=== PATIENT | female | born 1955 | race African-American/Black ===

== ENCOUNTER 2021-04-03 19:37 | Inpatient (IN) | payer MEDICARE ==
[~2021-04-03] VITALS: Ht 160 cm; Wt 66.2 kg
[2021-04-03 20:44] VITALS: BP 142/88
[2021-04-03] MEDS ORDERED: MAG HYDROX/AL HYDROX/SIMETH 30 ML UDC PO PRN (21:00)
[2021-04-03] MEDS ORDERED: BLOOD SUGAR DIAGNOSTIC 1 EACH STRIP IN ONE (21:00)
[2021-04-03] MEDS ORDERED: MAGNESIUM HYDROXIDE 30 ML UDC PO PRN (21:00)
--- NOTE | 2021-04-04 00:44 | NUR ---
GPS/RN ADMITTED A 65 Y/O FEMALE FROM [facility] IN [facility]. PATIENT ADMITTED ON 5150 HOLD FOR DTS AND GD. PER HOLD, "PATIENT HAS SCHIZOAFFECTIVE DISORDER-UNSPECIFIED TYPE, STATUS POST SUICIDE ATTEMPT VIA DRINKING BLEACH DUE TO DELUSIONAL BELIEF THAT DAUGHTER WAS MURDERED BY THE . PATIENT HAS LONG HISTOR OF TREATMENT NON COMPLIANCE. FAMILY REPORTS THAT PATIENT SUFFER FROM SEVERE PARANOID IDEATIONS, PATIENT HASN'T BEED GETTING FOOD DUE TO BELIEF THAT SHE WILL BE ATTACKED BY THUGS AT THE [employer]. PATIENT HAS LOST 30 LBS. IN LAST 2 MONTHS." UPON FACE TO FACE ASSESSMENT, PATIENT WAS AWAKE, ALERT, ORIENTED X 1, FLAT AFFECT, DELUSIONAL, PATIENT STATED THAT AFTER SHE TOOK THE BLEACH, HER INTESTINES CAME OUT AND A RESULT, SHE DOES NOT WANT TO EAT. PER CT OF THE ABDOMEN AND PELVIS DONE IN [facility], RESULT WAS UNREMARKABLE. PATIENT IS UNDER THE PSYCH CARE OF DR. CODY AND THE MEDICAL CARE OF DR. SUNNI SHELL. PATIENT'S RIGHTS HANDBOOK AND GUIDE TO PRESCRIPTION MEDICATIONS HANDBOOK WERE PROVIDED. PATIENT HAS NO BELONGINGS UPON ADMISSION. PATIENT DENIES PAIN OR DISCOMFORT AT THIS TIME, SKIN BODY CHECK ASSESSMENT DONE. SKIN IS INTACT. NO VERBALIZATION OF THOUGHTS AND FEELINGS. SAFETY PRECAUTIONS IN PLACE. WILL CONTINUE TO MONITOR Q 15 MINUTES ROUNDS FOR SAFETY AND BEHAVIOR.
[2021-04-04] MEDS ORDERED: CETI10CA PO (00:58)
[2021-04-04] MEDS ORDERED: SIMV10TA98 PO (00:58)
[2021-04-04] MEDS ORDERED: ACET-907 PO (00:58)
[2021-04-04] MEDS ORDERED: TRAZ-182 PO (00:58)
[2021-04-04] MEDS ORDERED: OXYB5TAB16 PO (00:58)
[2021-04-04 07:45] LABS: ALBUMIN 3.1 g/dL (3.4-5.0); BILIRUBIN,TOTAL 0.7 mg/dL (0.2-1.0); CALCIUM, SERUM 9.2 mg/dL (8.5-10.1); POTASSIUM 3.5 mmol/L (3.5-5.1); TOTAL PROTEIN, SERUM 5.9 g/dL (6.4-8.2)
[2021-04-04 08:00] VITALS: BP 114/64
--- NOTE | 2021-04-04 11:30 | NUR ---
RN NOTES PATIENT SEEN AND EVALUATED BY MARIE CAMPOS CARD BOXER, MADE AWARE THAT HOME MEDICATION NEEDS DONE , VEDA SALAZAR SAID SHE WILL DO IT.
[2021-04-04 12:00] LABS: BILIRUBIN,URINE SMALL (NEGATIVE); COLOR,URINE YELLOW (YELLOW); LEUKOCYTE ESTERASE ,URINE NEGATIVE (NEGATIVE); NITRITE, URINE NEGATIVE (NEGATIVE); PROTEIN,URINE NEGATIVE (NEGATIVE); UGLUCOSE NEGATIVE (NEGATIVE); UROBILINOGEN,URINE 0.2 EU/dL (0.2)
--- NOTE | 2021-04-04 12:00 | NUR ---
Family Contact: SW contacted the pts daughter, Krystina ([phone]), and left a voicemail stating that the SW would like to discuss the pts treatment.
[2021-04-04 12:16] LABS: BACTERIA,URINE Few /HPF (None Seen); MUCUS,URINE Few /LPF (None Seen); RBC,URINE 0-2 /HPF (0-2); SQUAMOUS EPITHELIAL CELL,UR Moderate /HPF (None Seen); WBC,URINE 0-2 /HPF (0-3)
[2021-04-04] MEDS: ACETAMINOPHEN 325 MG TABLET PO PRN (12:16)
--- NOTE | 2021-04-04 12:18 | NUR ---
RN NOTES PATIENT COMPLAINT OF 3/10 GENERALIZED PAIN, ACETAMINOPHEN GIVEN ORDERED. NO ACUTE DISTRESS NOTED.
[2021-04-04 12:19] LABS: CALCIUM OXALATE CRYSTALS,UR Rare /HPF (None Seen); URINE AMORPHOUS URATE Moderate /HPF (None Seen)
--- NOTE | 2021-04-04 12:28 | NUR ---
Pt currently is homeless and states that she needs placement. SW will work with the pt and the MD regarding appropriate discharge planning. SW will form a safe and proper discharge.
[2021-04-04] MEDS: DIVALPROEX SODIUM 125 MG CAP.SPRINK PO SCH ×3 (13:30→17:51)
[2021-04-04] MEDS: risperiDONE 1 MG TABLET PO SCH ×5 (13:30→23:30)
[2021-04-04 16:00] VITALS: BP 129/76
[2021-04-04] MEDS ORDERED: DEXTROSE 50%-WATER 50 ML DISP.SYRIN IV PRN (18:00)
[2021-04-04] MEDS: SIMVASTATIN 10 MG TABLET PO SCH (18:34)
[2021-04-04 20:31] VITALS: BP 120/65
[2021-04-04] MEDS: BLOOD SUGAR DIAGNOSTIC 1 EACH STRIP IN SCH (21:56)
[2021-04-04] MEDS: INSULIN REGULAR, HUMAN 100 UNIT/ML 3 ML VIAL SQ PRN (21:57)
[2021-04-05 08:00] VITALS: BP 122/92
[2021-04-05] MEDS: METFORMIN 500 MG TABLET PO SCH ×3 (09:00→17:27)
[2021-04-05] MEDS: cetrizine 10 MG TABLET PO SCH ×2 (09:00→09:35)
[2021-04-05] MEDS: BLOOD SUGAR DIAGNOSTIC 1 EACH STRIP IN SCH ×4 (09:24→21:38)
[2021-04-05] MEDS: OXYBUTYNIN CHLORIDE 5 MG TABLET PO SCH (09:35)
[2021-04-05] MEDS: risperiDONE 1 MG TABLET PO SCH ×2 (09:36→21:46)
[2021-04-05] MEDS: DIVALPROEX SODIUM 125 MG CAP.SPRINK PO SCH ×4 (09:36→17:27)
--- NOTE | 2021-04-05 11:09 | NUR ---
GIVEN TYLENOL FOR HEADACHE.
--- NOTE | 2021-04-05 11:14 | NUR ---
AGITATED,WALKING ABOUT RANTING.VERY PARANOID.
[2021-04-05] MEDS: LORAZEPAM 0.5 MG TABLET PO PRN (11:23)
--- NOTE | 2021-04-05 12:13 | NUR ---
given ativan for agitation.
[2021-04-05] MEDS: INSULIN REGULAR, HUMAN 100 UNIT/ML 3 ML VIAL SQ PRN ×3 (12:42→21:49)
[2021-04-05 16:00] VITALS: BP 109/69
[2021-04-05] MEDS: SIMVASTATIN 10 MG TABLET PO SCH (17:27)
[2021-04-05 20:03] VITALS: BP 101/55
--- NOTE | 2021-04-06 06:00 | NUR ---
ENDING NOTES: WITH CONVERSATION SHE HAD FLEEING THOUGHTS. SHE WOULD TALK ABOUT HER DAUGHTER, ABOUT WICKED PEOPLE, HER NEIGBORS, SHOOTING IN THE NEWS. SHE WAS INTERUPPETED WITH THE LADY IN [address] THE NIGHT AND UNABLE TO GET MUCH SLEEP. SLEPT 6 HOURS THIS NIGHT
[2021-04-06] MEDS: BLOOD SUGAR DIAGNOSTIC 1 EACH STRIP IN SCH ×4 (07:52→21:48)
[2021-04-06 08:00] VITALS: BP 114/71
[2021-04-06] MEDS: risperiDONE 1 MG TABLET PO SCH ×2 (08:53→21:43)
[2021-04-06] MEDS: METFORMIN 500 MG TABLET PO SCH ×2 (09:00→17:00)
[2021-04-06] MEDS: DIVALPROEX SODIUM 125 MG CAP.SPRINK PO SCH ×3 (09:00→17:00)
[2021-04-06] MEDS: cetrizine 10 MG TABLET PO SCH (09:00)
[2021-04-06] MEDS: OXYBUTYNIN CHLORIDE 5 MG TABLET PO SCH (09:02)
[2021-04-06] MEDS: LORAZEPAM 0.5 MG TABLET PO PRN (10:14)
--- NOTE | 2021-04-06 10:22 | NUR ---
RN NOTES PATIENT REQUEST FOR ATIVAN 0.5MG 1 TAB P.O. AND WAS GIVEN. WILL CONTINUE TO MONITOR.
[2021-04-06 16:00] VITALS: BP 138/89
[2021-04-06] MEDS: SIMVASTATIN 10 MG TABLET PO SCH (18:00)
[2021-04-06 21:19] VITALS: BP 142/89
[2021-04-06 21:33] VITALS: BP 142/89
[2021-04-06] MEDS: INSULIN REGULAR, HUMAN 100 UNIT/ML 3 ML VIAL SQ PRN (21:53)
--- NOTE | 2021-04-07 06:55 | NUR ---
GPS RN CLOSING NOTES: PATIENT IS AWAKE, A/O X1. PATIENT SLEPT 5HR THIS SHIFT. PATIENT REFUSED WEEKLY SKIN ASSESSMENT. NO S/S OF DISTRESS. RESPIRATION EVEN AND UNLABORED WITH EQUAL RISE AND FALL OF THE CHEST ON ROOM AIR. ALL PATIENT CARE NEEDS HAVE BEEN MET ANTICIPATED. WILL CONTINUE TO MONITOR FOR SAFETY, MOOD AND BEHAVIOR AND ENDORSE TO AM SHIFT.
[2021-04-07] MEDS: BLOOD SUGAR DIAGNOSTIC 1 EACH STRIP IN SCH ×4 (07:36→21:24)
[2021-04-07 08:00] VITALS: BP 144/67
[2021-04-07] MEDS: cetrizine 10 MG TABLET PO SCH (08:03)
[2021-04-07] MEDS: OXYBUTYNIN CHLORIDE 5 MG TABLET PO SCH (08:03)
[2021-04-07] MEDS: risperiDONE 1 MG TABLET PO SCH ×2 (08:03→13:12)
[2021-04-07] MEDS: METFORMIN 500 MG TABLET PO SCH ×2 (08:03→17:00)
[2021-04-07] MEDS: DIVALPROEX SODIUM 125 MG CAP.SPRINK PO SCH ×3 (08:03→17:00)
--- NOTE | 2021-04-07 14:36 | NUR ---
SNF Referral: MILLA faxed a referral to [facility] with attn to Michael to the fax number: [phone].
--- NOTE | 2021-04-07 14:38 | NUR ---
Family Contact: SW contacted the pts daughter, Krystina ([phone]), and left a voicemail stating that the SW would like to discuss the pts treatment.
--- NOTE | 2021-04-07 15:31 | NUR ---
Family Contact: SW contacted the pts daughter, Krystina ([phone]), and returned her voicemail. Pts daughter stated that she does not think that the pt is going to become stable soon and that she does not want to discharge earlier. MILLA stated that the discharge will be up to the MD and we should start planning for the placement. MILLA stated that she will call her tomorrow and will refer to places of her choosing.
--- NOTE | 2021-04-07 15:39 | NUR ---
SNF Contact: Ander ([phone]) from [facility] contacted the SW and stated that the pts insurance does not cover SNF and so they will not accept the pt.
[2021-04-07 16:00] VITALS: BP 123/89
[2021-04-07] MEDS: SIMVASTATIN 10 MG TABLET PO SCH (17:00)
[2021-04-07 20:00] VITALS: BP 140/83
[2021-04-07] MEDS ORDERED: risperiDONE 1 MG TABLET PO SCH (22:00)
[2021-04-08] MEDS: LORAZEPAM 0.5 MG TABLET PO PRN (06:50)
--- NOTE | 2021-04-08 06:50 | NUR ---
GPS-RN NOTES: ANXIETY PATIENT C/O FEELING ANXIOUS. PRN ATIVAN 0.5MG PO GIVEN. WILL CONTINUE TO MONITOR FOR PT'S SAFETY.
[2021-04-08] MEDS: BLOOD SUGAR DIAGNOSTIC 1 EACH STRIP IN SCH ×4 (07:23→21:27)
[2021-04-08] MEDS: INSULIN REGULAR, HUMAN 100 UNIT/ML 3 ML VIAL SQ PRN ×2 (07:33→21:37)
[2021-04-08 08:00] VITALS: BP 105/59
[2021-04-08] MEDS: OXYBUTYNIN CHLORIDE 5 MG TABLET PO SCH (08:07)
[2021-04-08] MEDS: METFORMIN 500 MG TABLET PO SCH ×2 (08:07→17:08)
[2021-04-08] MEDS: DIVALPROEX SODIUM 125 MG CAP.SPRINK PO SCH ×3 (08:08→17:08)
[2021-04-08] MEDS: risperiDONE 1 MG TABLET PO SCH ×2 (08:08→12:13)
[2021-04-08] MEDS: cetrizine 10 MG TABLET PO SCH (08:08)
--- NOTE | 2021-04-08 13:04 | NUR ---
Family Contact: SW contacted the pts daughter, Krystina ([phone]), and returned her voicemail. SW expressed that the hospital will not be pursuing LPS conservatorship for this pt.
[2021-04-08 16:00] VITALS: BP 113/75
--- NOTE | 2021-04-08 16:23 | NUR ---
SNF Contact: HAI ([phone]) from [facility] contacted the SW and stated that the pt was accepted to their facility.
[2021-04-08] MEDS: SIMVASTATIN 10 MG TABLET PO SCH (17:08)
[2021-04-08 19:50] VITALS: BP 109/65
[2021-04-08] MEDS ORDERED: risperiDONE 1 MG TABLET PO SCH (22:00)
[2021-04-09] MEDS: BLOOD SUGAR DIAGNOSTIC 1 EACH STRIP IN SCH ×4 (07:37→21:59)
[2021-04-09 08:00] VITALS: BP 140/81
[2021-04-09] MEDS: risperiDONE 1 MG TABLET PO SCH ×3 (08:21→21:59)
[2021-04-09] MEDS: OXYBUTYNIN CHLORIDE 5 MG TABLET PO SCH (08:21)
[2021-04-09] MEDS: DIVALPROEX SODIUM 125 MG CAP.SPRINK PO SCH ×3 (08:21→17:39)
[2021-04-09] MEDS: cetrizine 10 MG TABLET PO SCH (08:21)
[2021-04-09] MEDS: METFORMIN 500 MG TABLET PO SCH ×2 (08:21→17:39)
[2021-04-09] MEDS: LORAZEPAM 0.5 MG TABLET PO PRN (09:21)
--- NOTE | 2021-04-09 09:21 | NUR ---
RN NOTE: ANXIETY PT STATES, "I'M GOING TO HAVE A NERVOUS BREAKDOWN". PT IS PARANOID. BELIEVES LOVED ONES WANT TO "STAB HER". PT BELIEVES PEOPLE ARE EVIL AND COMPULSIVELY CALLING DAUGHTER. MEDICATED WITH ATIVAN 0.5 MG PO PRN.
--- NOTE | 2021-04-09 10:11 | NUR ---
Probable Cause Hearing: Pts [id number] hold was upheld for grave disability.
[2021-04-09 16:00] VITALS: BP 140/79
[2021-04-09] MEDS: SIMVASTATIN 10 MG TABLET PO SCH (17:39)
[2021-04-09 20:00] VITALS: BP 119/67
[2021-04-10] MEDS: BLOOD SUGAR DIAGNOSTIC 1 EACH STRIP IN SCH ×4 (07:43→21:59)
[2021-04-10 08:00] VITALS: BP 158/104
[2021-04-10] MEDS: DIVALPROEX SODIUM 125 MG CAP.SPRINK PO SCH ×3 (08:34→16:13)
[2021-04-10] MEDS: cetrizine 10 MG TABLET PO SCH (08:34)
[2021-04-10] MEDS: METFORMIN 500 MG TABLET PO SCH ×2 (08:34→16:13)
[2021-04-10] MEDS: OXYBUTYNIN CHLORIDE 5 MG TABLET PO SCH (08:36)
[2021-04-10] MEDS: risperiDONE 1 MG TABLET PO SCH ×3 (08:36→21:59)
[2021-04-10] MEDS: LORAZEPAM 0.5 MG TABLET PO PRN ×2 (09:20→16:13)
--- NOTE | 2021-04-10 09:21 | NUR ---
RN-NOTES PATIENT REQUESTING ATIVAN FOR ANXIETY,,ATIVAN 0.5MG P.O GIVEN PRN ORDER. WILL CONT. MONITORING FOR SAFETY AND BEHAVIOR.
--- NOTE | 2021-04-10 10:25 | NUR ---
RN-NOTES PATIENT LYING IN BED INTERMITTENTLY SLEEPING ,NO ACUTE DISTRESS NOTED.
--- NOTE | 2021-04-10 14:26 | NUR ---
Family Contact: SW contacted the pts daughter, Krystina ([phone]), and informed her that [facility] did not accept the pt and only [facility] did. She stated that she was going to follow up with the facility.
[2021-04-10 16:00] VITALS: BP 138/76
[2021-04-10] MEDS: ACETAMINOPHEN 325 MG TABLET PO PRN (16:13)
[2021-04-10] MEDS: SIMVASTATIN 10 MG TABLET PO SCH (17:39)
[2021-04-10 19:46] VITALS: BP 122/71
[2021-04-10 20:00] VITALS: BP 122/71
[2021-04-11 08:00] VITALS: BP 149/98
[2021-04-11] MEDS: BLOOD SUGAR DIAGNOSTIC 1 EACH STRIP IN SCH ×4 (08:12→21:24)
[2021-04-11] MEDS: risperiDONE 1 MG TABLET PO SCH ×3 (08:30→21:21)
[2021-04-11] MEDS: METFORMIN 500 MG TABLET PO SCH ×2 (08:30→16:15)
[2021-04-11] MEDS: DIVALPROEX SODIUM 125 MG CAP.SPRINK PO SCH ×3 (08:31→16:15)
[2021-04-11] MEDS: OXYBUTYNIN CHLORIDE 5 MG TABLET PO SCH (08:31)
[2021-04-11] MEDS: cetrizine 10 MG TABLET PO SCH (08:31)
[2021-04-11] MEDS: LORAZEPAM 0.5 MG TABLET PO PRN (09:34)
--- NOTE | 2021-04-11 09:36 | NUR ---
RN-NOTES NOTED PATIENT ANGRY, AGITATED AND CURSING STAFF. STATED" YOU ARE ALL EVIL AND GO TO HELL" REDIRECTED AND ATIVAN 0.5MG P.O GIVEN PRN ORDER. WILL CONT. MONITORING FOR SAFETY AND BEHAVIOR.
--- NOTE | 2021-04-11 10:35 | NUR ---
RN-NOTES PATIENT LYING IN BED AWAKE,ALERT CALM ,NO ACUTE DISTRESS NOTED.
[2021-04-11] MEDS: ACETAMINOPHEN 325 MG TABLET PO PRN (11:09)
--- NOTE | 2021-04-11 11:10 | NUR ---
RN-NOTES PATIENT REQUESTING TYLENOL FOR HER BACK PAIN. TYLENOL 650MG P.O GIVEN PRN ORDER. WILL CONT. MONITORING FOR SAFETY.
[2021-04-11] MEDS ORDERED: OLANZAPINE 10 MG VIAL IM ONE (12:00)
[2021-04-11] MEDS: INSULIN REGULAR, HUMAN 100 UNIT/ML 3 ML VIAL SQ PRN ×2 (12:09→17:34)
--- NOTE | 2021-04-11 12:12 | NUR ---
RN-NOTES PATIENT VERY ANXIOUS,PACING IN THE HALLWAY,ANGRY AND CURSING STAFF. DR. CODY IN THE UNIT AND PATIENT REQUESTED IM MEDICATIONS FROM THE PSYCHIATRIST. ZYPREXA 5MG IM GIVEN ORDERED. WILL CONT. MONITORING FOR SAFETY AND BEHAVIOR.
--- NOTE | 2021-04-11 13:40 | NUR ---
RN-NOTES PATIENT LYING IN BED INTERMITTENTLY SLEEPING,CALM NO ACUTE DISTRESS NOTED.
[2021-04-11 16:00] VITALS: BP 141/86
[2021-04-11] MEDS: SIMVASTATIN 10 MG TABLET PO SCH (17:21)
[2021-04-11 20:29] VITALS: BP 138/74
[2021-04-12 07:10] LABS: ALBUMIN 2.4 g/dL (3.4-5.0); BILIRUBIN,TOTAL 0.1 mg/dL (0.2-1.0); CALCIUM, SERUM 8.7 mg/dL (8.5-10.1); POTASSIUM 4.2 mmol/L (3.5-5.1); TOTAL PROTEIN, SERUM 5.2 g/dL (6.4-8.2)
[2021-04-12] MEDS: BLOOD SUGAR DIAGNOSTIC 1 EACH STRIP IN SCH ×4 (07:31→22:02)
[2021-04-12 08:00] VITALS: BP 141/81
[2021-04-12] MEDS: OXYBUTYNIN CHLORIDE 5 MG TABLET PO SCH (08:26)
[2021-04-12] MEDS: DIVALPROEX SODIUM 125 MG CAP.SPRINK PO SCH ×3 (08:27→16:57)
[2021-04-12] MEDS: METFORMIN 500 MG TABLET PO SCH ×2 (08:27→16:57)
[2021-04-12] MEDS: risperiDONE 1 MG TABLET PO SCH ×3 (08:27→22:14)
[2021-04-12] MEDS: cetrizine 10 MG TABLET PO SCH (08:27)
[2021-04-12 08:34] LABS: BASOPHILS % (AUTO) 0.5 % (0.0-2.0); EOSINOPHILS % (AUTO) 2.9 % (0.0-6.0); HEMATOCRIT 37 % (33-45); LYMPHOCYTES # (AUTO) 1.9 /CMM (0.8-4.8); LYMPHOCYTES % (AUTO) 52.9 % (20.0-44.0); MEAN CORPUSCULAR HGB CONC 33 g/dl (31.0-36.0); MEAN CORPUSCULAR VOLUME 95 fL (82-100); MONOCYTES # (AUTO) 0.3 /CMM (0.1-1.30); NEUTROPHILS # (AUTO) 1.3 /CMM (1.8-8.9); NEUTROPHILS % (AUTO) 36.7 % (43.0-81.0); PLATELET COUNT (AUTO) 239 /CMM (150-450); RED BLOOD CELL COUNT(AUTO) 3.85 MIL/uL (4.0-5.2); WHITE BLOOD COUNT (AUTO) 3.6 K/uL (4.3-11.0)
[2021-04-12 16:00] VITALS: BP 116/63
[2021-04-12] MEDS: SIMVASTATIN 10 MG TABLET PO SCH (17:19)
[2021-04-12 20:22] VITALS: BP 118/71
[2021-04-12] MEDS: INSULIN REGULAR, HUMAN 100 UNIT/ML 3 ML VIAL SQ PRN (22:03)
[2021-04-13] MEDS: LORAZEPAM 0.5 MG TABLET PO PRN ×3 (03:02→18:58)
--- NOTE | 2021-04-13 03:05 | NUR ---
GPS RN NOTES: PATIENT WOKE UP COMPLAINING OF ANXIETY AND REQUESTED FOR ATIVAN. ATIVAN 0.5MG/1TAB GIVEN PO PRN ORDERED AT 0302. WILL CONTINUE TO MONITOR.
--- NOTE | 2021-04-13 04:02 | NUR ---
MS RN: REASSESSMENT Patient in bed, sleeping, arouses easily. Able to calm down after PRN Ativan. Maintained safety.
[2021-04-13 08:00] VITALS: BP 140/81
--- NOTE | 2021-04-13 08:00 | NUR ---
RN OPENING NOTE Patient in bed, awake. Tolerating room air, denies shortness of breath.Follow simple commands. denies any si/hi/ah/vh at this time. med compliant. calm. Bed in low position. Remains under psyche care.will monitor q15 for safety.
[2021-04-13] MEDS: BLOOD SUGAR DIAGNOSTIC 1 EACH STRIP IN SCH ×4 (08:21→22:00)
[2021-04-13] MEDS: DIVALPROEX SODIUM 125 MG CAP.SPRINK PO SCH ×3 (08:50→17:12)
[2021-04-13] MEDS: METFORMIN 500 MG TABLET PO SCH ×2 (08:50→17:12)
[2021-04-13] MEDS: cetrizine 10 MG TABLET PO SCH (08:50)
[2021-04-13] MEDS: risperiDONE 1 MG TABLET PO SCH ×3 (08:50→21:52)
[2021-04-13] MEDS: OXYBUTYNIN CHLORIDE 5 MG TABLET PO SCH (08:51)
[2021-04-13] MEDS: ACETAMINOPHEN 325 MG TABLET PO PRN (12:20)
[2021-04-13 16:00] VITALS: BP 131/65
[2021-04-13] MEDS: INSULIN REGULAR, HUMAN 100 UNIT/ML 3 ML VIAL SQ PRN (17:08)
[2021-04-13] MEDS: SIMVASTATIN 10 MG TABLET PO SCH (17:13)
[2021-04-13 20:30] VITALS: BP 147/94
--- NOTE | 2021-04-13 22:00 | NUR ---
GPS RN NOTES PATIENT BS IS 94. NO INSULIN GIVEN.
[2021-04-14 01:01] VITALS: BP 147/94
--- NOTE | 2021-04-14 06:40 | NUR ---
GPS RN CLOSING NOTE PATIENT IN BED WITH EYES CLOSED, EASY TO AROUSE. NO S/S OF DISTRESS. NO C/O PAIN PHONG. ALL NEEDS ATTENDED. ALL SCHED MEDS ADMINISTERED. SAFETY KEPT THE WHOLE SHIFT. DID NOT REPORT ANY SI. NO SIGNIFICANT CHANGE SINCE LAST SHIFT. WILL ENDORSE CARE TO TENNILLE PETERS.
[2021-04-14] MEDS: BLOOD SUGAR DIAGNOSTIC 1 EACH STRIP IN SCH ×4 (07:26→21:53)
[2021-04-14 08:00] VITALS: BP 129/81
[2021-04-14] MEDS: OXYBUTYNIN CHLORIDE 5 MG TABLET PO SCH (08:33)
[2021-04-14] MEDS: cetrizine 10 MG TABLET PO SCH (08:33)
[2021-04-14] MEDS: risperiDONE 1 MG TABLET PO SCH ×3 (08:33→21:18)
[2021-04-14] MEDS: METFORMIN 500 MG TABLET PO SCH ×2 (08:33→17:13)
[2021-04-14] MEDS: DIVALPROEX SODIUM 125 MG CAP.SPRINK PO SCH ×3 (08:33→17:13)
--- NOTE | 2021-04-14 09:00 | NUR ---
RN NOTE- PT ALERT INTERACTIVE BLUNTED AFFECT MED COMPLIANT A BIT SLOW TO RESPOND VERBALLY DENIES ALL
[2021-04-14] MEDS: LORAZEPAM 0.5 MG TABLET PO PRN ×2 (09:45→19:32)
--- NOTE | 2021-04-14 09:57 | NUR ---
RN NOTE- C/O ANXIETY. ATIVAN 0.5 MG GIVEN
[2021-04-14 16:00] VITALS: BP 148/88
[2021-04-14] MEDS: SIMVASTATIN 10 MG TABLET PO SCH (17:13)
--- NOTE | 2021-04-14 19:47 | NUR ---
Opening Notes: Patient in her room, awake. Tolerating room air, no c/o and s/s of pain and discomfort.Follow simple commands. denies any si/hi/ah/vh at this time. med compliant as reported . calm. Bed in low position. Remains under psyche care.will monitor q15 for safety.
[2021-04-14 20:00] VITALS: BP 127/81
[2021-04-14] MEDS: TEMAZEPAM 7.5 MG CAPSULE PO PRN (21:17)
[2021-04-14] MEDS: INSULIN REGULAR, HUMAN 100 UNIT/ML 3 ML VIAL SQ PRN (21:54)
--- NOTE | 2021-04-15 05:49 | NUR ---
CLOSING NOTE PATIENT IN BED SLEEPING. NO S/S OF DISTRESS. NO C/O PAIN PHONG. ALL NEEDS ATTENDED. ALL SCHED MEDS ADMINISTERED. SAFETY KEPT THE WHOLE SHIFT. DID NOT REPORT ANY SI. NO SIGNIFICANT CHANGE SINCE LAST SHIFT. WILL ENDORSE CARE TO MORNING RN.
[2021-04-15] MEDS: BLOOD SUGAR DIAGNOSTIC 1 EACH STRIP IN SCH ×4 (07:45→21:50)
[2021-04-15 08:00] VITALS: BP 128/73
[2021-04-15] MEDS: cetrizine 10 MG TABLET PO SCH (08:23)
[2021-04-15] MEDS: risperiDONE 1 MG TABLET PO SCH ×3 (08:23→21:53)
[2021-04-15] MEDS: DIVALPROEX SODIUM 125 MG CAP.SPRINK PO SCH ×3 (08:23→16:53)
[2021-04-15] MEDS: OXYBUTYNIN CHLORIDE 5 MG TABLET PO SCH (08:23)
[2021-04-15] MEDS: METFORMIN 500 MG TABLET PO SCH ×2 (08:23→16:54)
--- NOTE | 2021-04-15 14:08 | NUR ---
Individual Intervention: SW met with the pt at bedside and discussed her discharge to a nursing facility in [place] and the pt stated that she would be willing to attend because she would have more freedom there than she has here. SW stated that she would inform her daughter. Pt stated that she wanted the SW to make sure that "there are no police around there." She states, "I have a bad history of run ins with the police because I am a Black woman." SW assured her safety at the facility.
[2021-04-15 15:32] LABS: BILIRUBIN,URINE NEGATIVE (NEGATIVE); COLOR,URINE YELLOW (YELLOW); LEUKOCYTE ESTERASE ,URINE NEGATIVE (NEGATIVE); NITRITE, URINE NEGATIVE (NEGATIVE); PH,URINE 5.5 (5.0-8.0); PROTEIN,URINE NEGATIVE (NEGATIVE); UGLUCOSE NEGATIVE (NEGATIVE); UROBILINOGEN,URINE 0.2 EU/dL (0.2)
--- NOTE | 2021-04-15 15:36 | NUR ---
Family Contact: SW contacted the pts daughter, Krystina ([phone]), and left a voicemail stating that the pt agreed to placement and then changed her mind so the SW was wondering if she could talk to the pt.
[2021-04-15 16:00] VITALS: BP 129/76
[2021-04-15] MEDS: SIMVASTATIN 10 MG TABLET PO SCH (17:20)
[2021-04-15] MEDS: INSULIN REGULAR, HUMAN 100 UNIT/ML 3 ML VIAL SQ PRN ×2 (17:20→21:51)
[2021-04-15] MEDS: LORAZEPAM 0.5 MG TABLET PO PRN (18:06)
--- NOTE | 2021-04-15 18:06 | NUR ---
RN NOTE- ANXIETY PRESENT// ATIVAN 0.5 MG GIVEN
[2021-04-15 20:00] VITALS: BP 142/84
[2021-04-16] MEDS: BLOOD SUGAR DIAGNOSTIC 1 EACH STRIP IN SCH ×4 (07:45→21:52)
[2021-04-16 08:00] VITALS: BP 130/81
[2021-04-16] MEDS: risperiDONE 1 MG TABLET PO SCH ×4 (08:03→22:33)
[2021-04-16] MEDS: METFORMIN 500 MG TABLET PO SCH ×2 (09:38→16:43)
[2021-04-16] MEDS: DIVALPROEX SODIUM 125 MG CAP.SPRINK PO SCH ×3 (09:38→16:43)
[2021-04-16] MEDS: cetrizine 10 MG TABLET PO SCH (09:38)
[2021-04-16] MEDS: OXYBUTYNIN CHLORIDE 5 MG TABLET PO SCH (09:38)
[2021-04-16 16:00] VITALS: BP 137/58
--- NOTE | 2021-04-16 16:23 | NUR ---
PER DAUGHTER CORINA PATIENT DECLINES DISCHARGE TO FACILITIES IN [place] AND [place] DUE TO BAD EXPERIENCES. FIDEL TIJERINA RN
--- NOTE | 2021-04-16 16:29 | NUR ---
Family Contact: SW contacted the pts daughter, Krystina ([phone]), and left a voicemail stating that the pt is going to be discharged to [facility] the next day.
--- NOTE | 2021-04-16 16:38 | NUR ---
Family Contact: SW contacted the pts daughter, Krystina ([phone]), and left a voicemail stating that the nurse informed her that the daughter called and stated that she does not want the pt to be at the SNF. SW asked for a call back as soon as possible as the discharge is tomorrow.
[2021-04-16] MEDS: SIMVASTATIN 10 MG TABLET PO SCH (17:20)
[2021-04-16] MEDS: LORAZEPAM 0.5 MG TABLET PO PRN (17:26)
[2021-04-16 20:00] VITALS: BP 142/88
[2021-04-16] MEDS: INSULIN REGULAR, HUMAN 100 UNIT/ML 3 ML VIAL SQ PRN (21:54)
[2021-04-16] MEDS: ACETAMINOPHEN 325 MG TABLET PO PRN (22:30)
[2021-04-16] MEDS: TEMAZEPAM 7.5 MG CAPSULE PO PRN (22:33)
[2021-04-17] MEDS: BLOOD SUGAR DIAGNOSTIC 1 EACH STRIP IN SCH ×2 (07:09→12:04)
[2021-04-17 08:00] VITALS: BP 127/84
[2021-04-17] MEDS: METFORMIN 500 MG TABLET PO SCH (08:31)
[2021-04-17] MEDS: DIVALPROEX SODIUM 125 MG CAP.SPRINK PO SCH ×2 (08:31→12:07)
[2021-04-17] MEDS: OXYBUTYNIN CHLORIDE 5 MG TABLET PO SCH (08:32)
[2021-04-17] MEDS: risperiDONE 1 MG TABLET PO SCH ×2 (08:32→12:07)
[2021-04-17] MEDS: cetrizine 10 MG TABLET PO SCH (08:32)
--- NOTE | 2021-04-17 08:39 | NUR ---
Family Contact: SW contacted the pts daughter, Krystina ([phone]), and left a voicemail stating that the SW received her voicemail and that she has left voicemails since Wednesday regarding the pts discharge and to the accepting facility. SW asked for a call back as soon as possible.
--- NOTE | 2021-04-17 08:57 | NUR ---
Family Contact: SW contacted the pts daughter, Krystina ([phone]), and left a voicemail stating that the SW would like to discuss the pts discharge today as it is approaching soon.
--- NOTE | 2021-04-17 10:07 | NUR ---
Dr. Ramirez gave an order to D/C hold and D/C to [facility] and to follow up on psych and medical doctors. Dr. Ramirez ordered on meds to continue at the facility.
--- NOTE | 2021-04-17 11:10 | NUR ---
Dr. Will made aware of the discharge and reconciled the meds to continue in the facility.
--- NOTE | 2021-04-17 11:12 | NUR ---
Family Contact: SW contacted the pts daughter, Krystina ([phone]), and left a voicemail stating that the SW would like to discuss the pts discharge today as it is approaching soon.
--- NOTE | 2021-04-17 15:03 | NUR ---
RN-DISCHARGE NOTES DR. CODY GAVE DISCHARGE ORDERS AND DR. PORTERADA AWARE OF THE DISCHARGE WITH ORDERS. PATIENT DID NOT VERBALIZE SI/HI,DENIES VISUAL/AUDITORY HALLUCINATIONS AT THE TIME OF DISCHARGE. PATIENT REFUSED TO SIGN ALL DISCHARGE PAPERS AND REUSED FULL BODY ASSESSMENT PRIOR TO DISCHARGE.REPORT WAS GIVEN TO ARON ( TAXICAB COORDINATOR). PATIENT LEFT THE UNIT IN STABLE CONDITION A/O X2 ,TILE LAYER BY AMBULANCE VIA GURNEY WITH TWO STAFF ASSIST. PATIENT LEFT WITH ALL HER BELONGINGS. MASK WAS PROVIDED.
--- NOTE | 2021-04-17 16:14 | NUR ---
Discharge Note: Pt will be discharged to [facility] ([facility]) located at [address] [place] [id number]; ([phone]). Pt will be transported via [facility] at 4PM. Pts daughter, Krystina ([phone]), was informed of the discharge. Upon discharge, the pt appears to be in a euthymic mood and presents with a calm affect. Pt appears to be alert and oriented x4 (time, place, self and situation). Pt denies both suicidal and homicidal ideation as well as auditory and visual hallucinations. SW provided patient with the 2019 [facility] Custodial Program list. SW provided patient with a copy of the [facility] homeless directory which provides information on locations for hot meals, sack lunches, food pantries, and showers. SW provided an additional list of mental health clinics: [facility] [address] [place] [address] ([phone]); [facility] [address] [place] [address] ([phone]); a list of medical clinics; [facility] [address] [facility] [address], [place]. [place], ; [facility] [address] MILLA Provided [facility] [address] [place] [address]: ([phone]). Patient was provided with a brief substance abuse intervention and referred to the following substance abuse programs: [facility] Substance Abuse Self-helpline ([phone]); [facility] [address] [place] [address] ([phone]); [facility] [address] [facility] [address] ([phone]); [facility] ([phone]); [facility] ([phone]); [facility] ([phone]); [facility] ([phone]). Pt will be under the care of his psychiatrist, Dr. Zhang, located at [address] [facility], [address] [place] [address]; and his video system repairer, Dr. Alvarenga, located at [address] [place] [address]; . Pt will continue to address his substance abuse with this treatment team. Pt signed the homeless waiver and the Choice of V[employer] form and copies were provided to the pt. Pts multidisciplinary exit care was completed, signed and a copy was provided to the pt as well.
== END 2021-04-17 15:00 | DRG 885 ==
LOC: GPS 19:37
PROVIDERS: ADMIT Psychiatry & Neurology Psychosomatic Medicine; ATTEND Registered Nurse
DX: F25.0 Schizoaffective disorder, bipolar type (principal); E11.65 Type 2 diabetes mellitus with hyperglycemia; E44.0 Moderate protein-calorie malnutrition; E87.0 Hyperosmolality and hypernatremia; F29 Unspecified psychosis not due to a substance or known physiological condition; F41.9 Anxiety disorder, unspecified; E78.5 Hyperlipidemia, unspecified; E86.1 Hypovolemia; G47.00 Insomnia, unspecified; N32.81 Overactive bladder; Z73.6 Limitation of activities due to disability; Z20.822 Contact with and (suspected) exposure to COVID-19; E88.09 Other disorders of plasma-protein metabolism, not elsewhere classified; Z68.25 Body mass index [BMI] 25.0-25.9, adult; Z79.84 Long term (current) use of oral hypoglycemic drugs
CPT/HCPCS: 36415; 80053-TC; 80061-TC; 80164-TC; 81001; 82962-TC; 85025-TC; 87081-TC; 87086-TC; 97116-TC; 97530-TC; A6253; J1815; J3490